=== PATIENT | male | born 1945 | race Caucasian/White ===

== ENCOUNTER → 2017-03-22 | Outpatient (CLI) | payer OTHER ==
[~2017-03-22] MED LIST: AMBIEN 5 MG TABL5 M1 PO; BUSPIRONE HCL10 MG PO; CALCIUM 500 WI1 EAC4 PO; CELEBREX 200 M200 MG PO; CHOLESTEROL PO; CYMBALTA60 MG PO; FLOMAX0.4 MG PO; GLUCOSAMINE HC500 MG PO; HYDROCODON-ACE1 EAC5 PO; KRILL OIL 1,001 EAC1 PO; MOBIC7.5 MG PO; MS CONTIN15 MG PO; NEURONTIN 300300 M1 PO; NORCO 10-325 T1 EAC1 PO; NORCO 10-325 T1 EACH PO; NORCO 5-325 TA1 EACH PO; SERTRALINE HCL50 MG PO; SYNTHROID PO; ULTRAM 50MG TAB50 MG PO; UNICOMPLEX M TA1 TA1 PO; VICODIN HP 10-1 EAC1 PO; VOLTAREN GEL 1100 G1 TOP
--- NOTE | 2017-03-24 08:15 | PAINCON ---
[facility] [address] [place] [address] PAIN MANAGEMENT CONSULTATION Name: ALONSOLOTT L Room: [facility] Rosalba#: [id number] Admission: 03/22/17 Attend Phys: Bal Mccray Discharge: Date of : 49 Report #: [id number] THIS REPORT FOR: //name// CC: Herber Manzo The patient is a very pleasant 71-year-old gentleman, typically treated for lumbar radiculopathy, axial back pain, right hip DJD, requiring high risk complex medication management. Last seen in pain clinic on 01/18/2017, continued on hydrocodone 10/325 one tablet 2-3 times a day, tramadol 50 mg up to 4 times a day. I prior injected his hip several months ago with some efficacy. We tried weaning hydrocodone from 3 a day to 2-3 a day limit, 75 down from 90. He notes decreased functional efficacy with this lower dose. He notes his pain overall is rated at 4 on a VAS. Pain primarily right hip and low back. We reviewed the fact that opiate medications are being used to provide analgesia adequate to support activities of daily living, not attempting to achieve a specific pain score on the 0-10 Visual Analog Scale. The current opiate medications are providing sufficient analgesia to allow the patient to participate in activities of daily living. The patient is not exhibiting any aberrant behavior suggestive of drug diversion. The patient is not having any adverse reactions to medications. The patient is not suffering from daytime somnolence or mental acuity changes. The patient is managing opiate-induced constipation with appropriate smpz-ued-osrsjlk agents and dietary considerations. The patient was counseled on concern for caution with operating a motor vehicle while using opiate medications. A physical exam was performed and the patient's functional status was evaluated. All patients with back pain were advised against the bed rest greater than 4 days and were advised to return to normal activities. Pain score assessment was noted and the treatment plan was reviewed with the patient. All current medications, both prescribed and OTC were reviewed and reconciled on the electronic medical record. Tobacco screening was accomplished and smoking cessation was advised when indicated. BMI was noted and diet/exercise modification was recommended for all patients following outside normal parameters. I reviewed with the patient today their responsibilities to safeguard prescription medications, reviewed their responsibility to utilize medications only as prescribed by the physician. They are to seek and receive pain medications only from 1 physician group ( [facility]). They are to use 1 pharmacy and keep the clinic informed if they change pharmacies. Their responsibilities include making followup visits in a timely fashion and to avoid abrupt discontinuation of medication usage. Their responsibilities further include bringing their medications (bottles from the pharmacy with residual pills) to the visit for possible confirmation of pill counts and the patient understands it is their responsibility to submit [place] [address] PAIN MANAGEMENT CONSULTATION Name: KAYLIE GUPTA [id number] Admission: 03/22/17 Attend Phys: Bal Mccray Discharge: Date of : 49 Report #: [id number] ensure both that the medications prescribed are present, and that no other controlled substances are present. All prescriptions provided today were generated electronically. PHYSICAL EXAMINATION: GENERAL: Shows 5 feet 9 inches, 183 pounds gentleman, BMI is 27 kilograms per meter squared. VITAL SIGNS: Blood pressure 142/72, pulse 70, respirations 18. NEUROLOGIC: Alert and oriented to person, place and time, judged to be a reasonable historian.: Rises from chair using armrest, modestly antalgic gait favoring the right hip and leg, some left hip pain with ambulation and standing. Pivoting and rotating seem to exacerbate pain. Lower extremity strength is preserved. ASSESSMENT: Symptomatic lumbar radiculopathy, history of right hip degenerative joint disease, axial back pain requiring high risk complex medication management. RECOMMENDATIONS: Continue opiate, we will increase hydrocodone 10/325 back in 90 tablets, i.e., 1-3 a day rather than 75 tablets (1 b.i.d. to t.i.d.). Continue tramadol 50 mg 4 times a day. Follow up in 2 months for reevaluation. We will try and get both the patient and his on a same day office visit schedule. <ELECTRONICALLY SIGNED> By: Thomas Manzo DO 03/24/17 0815 [id number] Manzo DO /nt
== END ==
LOC: M.PC 02:03
DX: M54.16 Radiculopathy, lumbar region (principal); M54.89 Other dorsalgia; Z79.899 Other long term (current) drug therapy

== ENCOUNTER → 2017-05-17 | Outpatient (CLI) | payer OTHER ==
--- NOTE | 2017-05-18 10:21 | PAINCON ---
[facility] [address] [place] [address] PAIN MANAGEMENT CONSULTATION Name: ALONSOKAYLIE Javi [facility] [id number] Admission: 05/17/17 Attend Phys: Bal Mccray Discharge: Date of : 49 Report #: [id number] THIS REPORT FOR: //name// CC: Herber Manzo DATE OF SERVICE: 05/17/2017 The patient is a very pleasant 72-year-old gentleman being treated for lumbar radiculopathy, axial back pain, right hip degenerative joint disease requiring complex medication management. Last seen in the pain clinic 03/22/2017. Continued on hydrocodone 10/325 one tablet up to 3 times a day for pain. Tramadol 50 mg up to 4 times a day for breakthrough pain. The patient returns to pain clinic today noting medications are generally providing sufficient analgesia to participate in activities of daily living. No problems with daytime somnolence, mental acuity changes, or constipation. He continues to take Celebrex 200 mg 1 a day, gabapentin 300 mg 1-2 tablets at bedtime, and hydrocodone 10/325 typically t.i.d. along with tramadol p.r.n. for breakthrough pain. The patient has chronic pain, low back, right greater than left hip and bilateral knees. The patient is 72 years of age, appears somewhat younger than stated age. PHYSICAL EXAMINATION: GENERAL: Shows 5 feet 9 inches, 182 pounds gentleman, BMI is 27.1 kilograms per meter squared, blood pressure 112/56, pulse 68, respirations 18. EXTREMITIES: Rises from chair using armrest. Gait is generally tandem, but has tenderness in the back and hips, pain with rotation of the right hip. Lower extremity strength is generally symmetric. SKIN: Intact. We reviewed the fact that opiate medications are being used to provide analgesia adequate to support activities of daily living, not attempting to achieve a specific pain score on the 0-10 Visual Analog Scale. The current opiate medications are providing sufficient analgesia to allow the patient to participate in activities of daily living. The patient is not exhibiting any aberrant behavior suggestive of drug diversion. The patient is not having any adverse reactions to medications. The patient is not suffering from daytime somnolence or mental acuity changes. The patient is managing opiate-induced constipation with appropriate wzmi-wtl-ugnicty agents and dietary considerations. The patient was counseled on concern [place] [address] PAIN MANAGEMENT CONSULTATION Name: KAYLIE GUPTA Javi Room: [facility]#: [id number] Admission: 05/17/17 Attend Phys: Bal Mccray Discharge: Date of : 49 Report #: [id number] a motor vehicle while using opiate medications. A physical exam was performed and the patient's functional status was evaluated. All patients with back pain were advised against the bed rest greater than 4 days and were advised to return to normal activities. Pain score assessment was noted and the treatment plan was reviewed with the patient. All current medications, both prescribed and OTC were reviewed and reconciled on the electronic medical record. Tobacco screening was accomplished and smoking cessation was advised when indicated. BMI was noted and diet/exercise modification was recommended for all patients following outside normal parameters. I reviewed with the patient today their responsibilities to safeguard prescription medications, reviewed their responsibility to utilize medications only as prescribed by the physician. They are to seek and receive pain medications only from 1 physician group ( [facility]). They are to use 1 pharmacy and keep the clinic informed if they change pharmacies. Their responsibilities include making followup visits in a timely fashion and to avoid abrupt discontinuation of medication usage. Their responsibilities further include bringing their medications (bottles from the pharmacy with residual pills) to the visit for possible confirmation of pill counts and the patient understands it is their responsibility to submit to random drug screens to ensure both that the medications prescribed are present, and that no other controlled substances are present. All prescriptions provided today were generated electronically. ASSESSMENT: Symptomatic axial back pain, degenerative joint disease affecting right greater than left hip and bilateral knees requiring complex medication regimen. RECOMMENDATION: We will continue hydrocodone 10/325 up to 3 a day. We have tried lower doses and we have tried using long-acting opiates all with dwindling efficacy. 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 He has continued to work 50-60 hours a week doing this. Medications enable him to continue with activities of daily living as well as continue working in meaningful work. I have taken the liberty of writing for current medication for another 2 months. Follow up at that time. <ELECTRONICALLY SIGNED> By: Thomas Manzo DO 05/18/17 1021 [id number] Manzo DO /nt
== END ==
LOC: M.PC 03:38
DX: M54.16 Radiculopathy, lumbar region (principal); M54.9 Dorsalgia, unspecified; M16.11 Unilateral primary osteoarthritis, right hip; M16.12 Unilateral primary osteoarthritis, left hip; M17.0 Bilateral primary osteoarthritis of knee; Z79.899 Other long term (current) drug therapy

== ENCOUNTER → 2017-06-27 | Outpatient (CLI) | payer OTHER | LOC: M.RAD 13:03 | DX: M54.6 Pain in thoracic spine (principal); M16.11 Unilateral primary osteoarthritis, right hip ==

== ENCOUNTER → 2017-07-12 | Outpatient (CLI) | payer OTHER ==
--- NOTE | 2017-07-13 09:37 | PAINCON ---
[address] [address] PAIN MANAGEMENT CONSULTATION Name: KAYLIE GUPTA [facility] [id number] Admission: 07/12/17 Attend Phys: Bal Mccray Discharge: Date of : 49 Report #: [id number] THIS REPORT FOR: //name// CC: Herber Manzo DATE OF SERVICE: 07/12/2017 HISTORY OF PRESENT ILLNESS: The patient is a very pleasant 72-year-old gentleman, typically treated for osteoarthritis, bilateral hips requiring complex medication management, component of lumbar radiculopathy requiring complex medication management. Last seen in the pain clinic on 05/17/2017. We will continue the patient on hydrocodone 10/325 one tablet 3 times a day. We tried long acting opiate with lower dose p.r.n. medication with nominal efficacy. He has been stable on hydrocodone 10/325 up to 3 a day and tramadol 50 mg up to 4 a day. He discontinued Celebrex and symptoms seem to have gotten worse. He notes he has a lot of low back spasm, which has been increasing recently. He was given a Medrol Dosepak, which afforded a significant relief of axial back pain. PHYSICAL EXAMINATION: GENERAL: Today does show a pleasant 72-year-old gentleman appearing somewhat younger than stated age. BMI is 27.5 kilograms per meter squared. VITAL SIGNS: Blood pressure 122/75, pulse 62, respirations are 20. NEUROLOGIC: Alert and oriented to person, place and time, judged to be a reasonable historian. MUSCULOSKELETAL: Cervical range of motion is good. Upper extremity strength is preserved. Rises from chair using the armrest, modestly antalgic gait. Very tender in the thoracic and lumbar paravertebral muscles, specifically from about L2 to L5 bilaterally. There is fairly tight muscle tone and tenderness with no discrete trigger points are noted. ASSESSMENT: Axial back pain, possible component of polymyositis versus myofascial pain. Chronic pain syndrome requiring complex medication management. RECOMMENDATIONS: 1. Continue hydrocodone 10/325 three a day, tramadol 50 mg 4 times a day and resume Celebrex 200 mg 1 a day. We will trial for 30 days Cymbalta 60 mg 1 a day. If back pain is more fibromyalgia type pain, this should afford some relief; if not, it may actually be an exacerbation of polymyositis, which would be well treated with low dose steroids. Unfortunately, the patient has a history of osteopenia; hence, chronic steroids would not be in his better interest long-term. 2. Follow up in 2 months for reevaluation. We will try the Cymbalta for 30 days and then discontinue. If he notes subjective relief, we will [place] [address] PAIN MANAGEMENT CONSULTATION Name: ALONSOLOTT L Room: [facility] DINA Navarrete#: [id number] Admission: 07/12/17 Attend Phys: Bal Mccray Discharge: Date of : 49 Report #: [id number] medication. We did get a buccal swab today random drug screen. No aberrant behavior suggestive of drug diversion, simply complying with her opiate consent to treat contract. <ELECTRONICALLY SIGNED> By: Thomas Manzo DO 07/13/17 0937 [id number] [id number] Manzo DO /nt
== END ==
LOC: M.PC 04:38
DX: G89.4 Chronic pain syndrome (principal); M54.9 Dorsalgia, unspecified; Z79.899 Other long term (current) drug therapy

== ENCOUNTER → 2017-09-13 | Outpatient (CLI) | payer OTHER ==
--- NOTE | 2017-09-14 07:27 | PAINCON ---
[address] [address] PAIN MANAGEMENT CONSULTATION Name: ALONSOLOTT L Room: [facility] DINA Navarrete#: [id number] Admission: 09/13/17 Attend Phys: Bal Mccray Discharge: Date of : 49 Report #: [id number] THIS REPORT FOR: //name// CC: Herber Manzo DATE OF SERVICE: 09/13/2017 The patient is a very pleasant 72-year-old gentleman, being treated for lumbar radiculopathy, osteoarthritis affecting both hips, requiring complex medication management. Last seen in the pain clinic 07/12/2017. The patient returns to pain clinic today noting medications are providing sufficient analgesia to participate in activities of daily living, in fact notes he is actually doing better than he has in some time. Last visit, we did start the patient on Cymbalta 60 mg 1 a day. He feels that this has significantly helped with the "fibromyalgia" component of pain in his back. He was told he had a component of polymyositis and was treated well with low dose steroids, but with history of osteopenia, he understood chronic steroids would not be in his long-term interest. The Cymbalta has been significantly efficacious for helping with the widespread thoracic and lumbar paravertebral muscle tenderness, primarily noted from L2-L5 bilaterally. We reviewed the fact that opiate medications are being used to provide analgesia adequate to support activities of daily living, not attempting to achieve a specific pain score on the 0-10 Visual Analog Scale. The current opiate medications are providing sufficient analgesia to allow the patient to participate in activities of daily living. The patient is not exhibiting any aberrant behavior suggestive of drug diversion. The patient is not having any adverse reactions to medications. The patient is not suffering from daytime somnolence or mental acuity changes. The patient is managing opiate-induced constipation with appropriate sqge-uzv-vrlvckh agents and dietary considerations. The patient was counseled on concern for caution with operating a motor vehicle while using opiate medications. A physical exam was performed and the patient's functional status was evaluated. All patients with back pain were advised against the bed rest greater than 4 days and were advised to return to normal activities. Pain score assessment was noted and the treatment plan was reviewed with the patient. All current medications, both prescribed and OTC were reviewed and reconciled on the electronic medical record. Tobacco screening was accomplished and smoking cessation was advised when indicated. BMI was noted and diet/exercise modification was recommended for all patients following outside normal parameters. I reviewed with the patient today their responsibilities to safeguard prescription medications, reviewed their responsibility [place] [address] PAIN MANAGEMENT CONSULTATION Name: KAYLIE GUPTA Room: [facility] Rosalba#: [id number] Admission: 09/13/17 Attend Phys: Bal Mccray Discharge: Date of : 49 Report #: [id number] only as prescribed by the physician. They are to seek and receive pain medications only from 1 physician group ( [facility]). They are to use 1 pharmacy and keep the clinic informed if they change pharmacies. Their responsibilities include making followup visits in a timely fashion and to avoid abrupt discontinuation of medication usage. Their responsibilities further include bringing their medications (bottles from the pharmacy with residual pills) to the visit for possible confirmation of pill counts and the patient understands it is their responsibility to submit to random drug screens to ensure both that the medications prescribed are present, and that no other controlled substances are present. All prescriptions provided today were generated electronically. The patient returns to pain clinic noting subjective pain score is 4 on a VAS. Pain is primarily low back and hips. Notes he is much more functional presently. PHYSICAL EXAMINATION: Shows a 5 feet 9 inches, 190-pound gentleman, BMI is 28.1 kg/m2. Blood pressure on EMR, pulse 57, respirations 16. Rises from chair easily. Gait is tandem. Alert and oriented to person, place and time, judged to be a reasonable historian. Cervical range of motion is full. Diffuse tenderness across the low back is significantly improved. Lumbar range of motion is modestly limited. Lower extremity strength is preserved. Last drug screen, a buccal swab obtained 07/12/2017, was positive for prescribed medication including hydrocodone and tramadol. Negative for any other controlled substances. ASSESSMENT: Osteoarthritis affecting bilateral hips, lumbar radiculopathy, chronic pain syndrome requiring complex medication management in an opiate consent to treat contract patient, stable on baseline medication, last random drug screen in June was positive for prescribed medications. RECOMMENDATION: Continue Cymbalta 60 mg 1 a day, hydrocodone 10/325 up to 3 tablets a day, I have taken the liberty of writing for 3 months of current medication, tramadol 50 mg up to 4 a day for breakthrough pain. I have taken the liberty of writing for 3 months of this medication as well. Continue baseline Celebrex and gabapentin. Follow up with Dr. Adam Ritter for ongoing pain management. <ELECTRONICALLY SIGNED> By: Thomas Manzo DO 09/14/17726 1323 20Thomas Manzo DO /nt
== END ==
LOC: M.PC 09-06 04:14
DX: M54.16 Radiculopathy, lumbar region (principal); M16.6 Other bilateral secondary osteoarthritis of hip; G89.29 Other chronic pain; Z79.891 Long term (current) use of opiate analgesic

== ENCOUNTER → 2017-12-19 | Outpatient (CLI) | payer OTHER ==
--- NOTE | 2018-01-31 15:49 | PAINCON ---
[address] [address] PAIN MANAGEMENT CONSULTATION Name: ALONSOKAYLIE Javi Room: [facility] DINA Navarrete#: [id number] Admission: 12/19/17 Attend Phys: Chris Ritter MD Discharge: Date of : 47 Report #: [id number] THIS REPORT FOR: //name// CC: Chris Mast DATE OF SERVICE: 12/19/2017 CHIEF COMPLAINT: Low back pain, history of hip and elbow pain. FOLLOWUP HISTORY: The patient is a 72-year-old gentleman who has been followed in the pain clinic by Dr. Thomas Manzo. He has a complex problem involving radiculopathy, osteoarthritis, which affects both hips and has been treated with complex medical management. The patient has not been a candidate for nonsteroidal anti-inflammatory medications because of his gastrointestinal problems. The patient feels that his medications have been helpful. He has returned today for renewal of these medications. He has had no complications from their use. He is aware that about [id number] people over the last year because of overdose on medications. He states that he is using his medication as prescribed. Keeps his medications in a guarded area. He was also found benefit from use of Cymbalta. He also has a fibromyalgia component of pain and discomfort. He has been told that he has some elements of. polymyositis and has been treated with low dose steroids because of this. Has a history of osteopenia. He has used these medications as sparingly as possible. He feels that his Cymbalta has been efficacious and is widespread thoracic and lumbar paravertebral muscle tenderness. Has pain primarily are significantly evident in through L5 areas bilaterally. He has returned today for renewal of his medications. He feels that his pain overall as about 80% improved with use of his medications. ALLERGIES: No known drug allergies. MEDICATIONS: Tramadol 50 mg 1 p.o. q. 4-6 h. p.r.n., Celebrex 200 mg 1 p.o. daily, duloxetine 60 mg daily, gabapentin 300 mg 1-2 tablets at bedtime, [place] 10/325 one p.o. t.i.d. PAST MEDICAL HISTORY: Hypertension, thyroid disease, stomach problems, benign prostatic hypertrophy, emotional problems, joint disease/arthritis ulcers stroke/TIA. PAST SURGICAL HISTORY: Carpal tunnel surgery 1999, fractured femur 1956. SOCIAL HISTORY: The patient was working in 2013. 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 LABORATORY DATA: No new laboratory items were available at the time of our interview. PAIN CLINIC ASSESSMENT/PQRS: 1. Osteoarthritic changes involving the hip. 2. Rheumatoid arthritis. The patient is not being treated for rheumatoid arthritis. 3. Height 5 feet 9 inches, weight 186 pounds, BMI is 28.4. 4. Vital signs: Blood pressure 151/81, heart rate 73, respiratory rate 16, room air saturation 96%, temperature 98.1. 5. Pain score of 4/10 can rise to the level6/10. 6. Fall risk. The patient has not fallen in the last 3 months. 7. Blood thinner. The patient is not on a blood thinning medication. 8. Hypertension. The patient is not being treated for hypertension. At this juncture, has been in the past. 9. Opioids greater than 6 weeks. The patient receives this medication from one source, the pain clinic. 10. Risk assessment tool. 11. Functional assessment low. 12. Pain impact score 46/70 13. Alcohol: The patient denies frequent use of alcoholic beverages. 13. Tobacco: The patient denies use of tobacco. 14. Recreational drugs. The patient denies recreational drug use. PHYSICAL EXAMINATION: GENERAL: The patient is a well-developed, well-nourished white male. Appears his stated age. He is alert and oriented x 3. Affect is appropriate. Speech is fluent. HEENT: Normocephalic, atraumatic. Extraocular muscles intact. Sclerae nonicteric. Mucous membranes are moist. NECK: Without adenopathy or JVD. Upper extremity muscle strength is judged to be 5/5 for the major muscle groups in the upper extremity. Portfolio Manager strength 5/5 Regular rate. LUNGS: Clear to auscultation. ABDOMEN: Nontender. Bowel sounds present. The patient complains of pain and discomfort in his hips bilaterally. Complains of pain in his elbow as well. The left elbow was most problematic. Lower extremity muscle strength is judged to be generally 5-/5 for the major muscle groups in the lower extremity. Notes some increased pain and discomfort with rotation of his hips to the range of motion. IMPRESSION: 1. Osteoarthritis involving both hips. [facility] [address] [place] [address] PAIN MANAGEMENT CONSULTATION Name: KAYLIE GUPTA Room: [facility]#: [id number] Admission: 12/19/17 Attend Phys: Chris Ritter MD Discharge: Date of : 47 Report #: [id number] 2. History of lumbar radiculopathy. 3. History of thyroid disease in the past. 4. History of stroke. 5. History of ulcers. 6. History of emotional problems. RECOMMENDATIONS: We discussed treatment options with the patient at this juncture. He finds that his current medication regimen is helpful. We will continue with the current regimen that Dr. Manzo had written for the patient. He will continue with Neurontin 300 mg one to two tablets at bedtime, Celebrex 200 mg 1 p.o. daily as tolerated. The patient will monitor his stomach/digestive system. He notes some worsening of pain or discomfort he will then immediately stopped the Celebrex, given he has a history of ulcers. Cymbalta 60 mg 1 p.o. daily, hydrocodone 10/325 one p.o. t.i.d. as needed. The patient will call us if he has any problems with his medications. A script for Ultram 50 mg 1 p.o. q. 4-6 h., total of 120, has been renewed as well. The patient will try Voltaren gel and rubbed into his upper extremities as needed q.i.d. We would like to thank you for letting us participate in his care. We hope he continues to improve. <ELECTRONICALLY SIGNED> By: Chris Ritter MD 01/31/18 1549 1316 1921N. Adam Ritter MD /nt
== END ==
LOC: M.PC 12-05 05:53
DX: M54.16 Radiculopathy, lumbar region (principal); M17.0 Bilateral primary osteoarthritis of knee; E07.9 Disorder of thyroid, unspecified; I63.9 Cerebral infarction, unspecified; L98.499 Non-pressure chronic ulcer of skin of other sites with unspecified severity; F98.9 Unspecified behavioral and emotional disorders with onset usually occurring in childhood and adolescence

== ENCOUNTER → 2018-02-06 | Outpatient (CLI) | payer OTHER ==
--- NOTE | ~2018-02-06 | PAINCON ---
[address] [address] PAIN MANAGEMENT CONSULTATION Name: KAYLIE GUPTA Javi Room: [facility] Rosalba#: [id number] Admission: 02/06/18 Attend Phys: Chris Ritter MD Discharge: Date of : 47 Report #: [id number] THIS REPORT FOR: //name// CC: Chris Mast DO DATE OF SERVICE: 02/06/2018 CHIEF COMPLAINT: Low back, hip, and left elbow pain. HISTORY OF PRESENT ILLNESS: The patient is a 72-year-old gentleman who has a history of low back pain as well as hip and elbow pain. He returns today indicating that his low back and hip pain is still problematic and the left elbow pain in the medial area (golf elbow) is more problematic today. He would like to have an injection in this area to help decrease the pain and discomfort that he is experiencing. As you may recall, he has a complex problem involving radiculopathy and osteoarthritis, which affects both hips and has been treated with complex medical management. The patient is not a candidate for nonsteroidal anti-inflammatory medications because of his gastroesophageal problems. He feels that his current medications are helpful. He would like to have these medications renewed. He states that he is taking his medications as prescribed. He keeps his medications in a guarded area. He feels that there is a benefit from use of Cymbalta. He also has fibromyalgia components of his pain. He has also had some elements of polymyositis and has been treated with low-dose steroids because of this. He has a history of osteopenia. He states that he tries to use his medications as sparingly as possible. He feels that Cymbalta has been efficacious and widespread thoracic and paravertebral muscle tenderness has been helped. He has pain, which can be significant in the L4-L5 distribution bilaterally. He feels that he is about overall 80% improved with his current medication regimen. ALLERGIES: No known drug allergies. MEDICATIONS: Tramadol 50 mg one p.o. 4-6 hours, Celebrex 200 mg 1 p.o. daily, duloxetine 60 mg daily, gabapentin 300 mg 1-2 tablets at bedtime, [place] 10/325 one p.o. t.i.d. PAIN CLINIC ASSESSMENT AND PQRS: 1. Osteoarthritic changes involving the hips. 2. Rheumatoid: The patient is not being treated for rheumatoid arthritis, but has some elements of polymyositis. 3. Height 5 feet 9 inches, weight 187 pounds, BMI is 27.7. 4. Vital signs: Blood pressure 134/73, heart rate 71, respiratory rate 18, room air saturation is 94%, temperature 98.2. 5. Pain intensity: 5/10. [place] [address] PAIN MANAGEMENT CONSULTATION Name: KAYLIE GUPTA Room: [facility]#: [id number] Admission: 02/06/18 Attend Phys: Chris Ritter MD Discharge: Date of : 47 Report #: [id number] 6. Fall risk: The patient has not fallen in the last 3 months. 7. Blood thinner: The patient is not on a blood thinning medication. 8. Hypertension: The patient is not being treated for hypertension. 9. Opioid greater than 6 weeks: The patient receives his medication from one source from the Pain Clinic. 10. Risk assessment tool. 11. Functional assessment tool: Low for opioid use. 12. Pain impact score: 46/70. 13. Alcohol: The patient denies frequent use of alcoholic beverages. 14. Tobacco: The patient denies use of alcoholic beverages. 15. Recreational drugs: The patient denies. PHYSICAL EXAMINATION: GENERAL: The patient is a well-developed, well-nourished, white male. He appears his stated age. He is alert and oriented x 3. His affect is appropriate. Speech is fluent. HEENT: Normocephalic, atraumatic. Extraocular eye muscles intact. Sclerae nonicteric. Mucous membranes are moist. NECK: Without adenopathy or JVD. LUNGS: Clear to auscultation. ABDOMEN: Nontender. Bowel sounds present. NEUROUSCULOSKELETAL: Upper extremity muscle strength is judged to be 5/5 for the major muscle groups in the upper extremity, signal worker helper strength is 5/5. The patient does complain of pain and discomfort in his hips bilaterally. He also complains of pain in his left elbow in the area of the medial portion (golf elbow). Lower extremity muscle strength is judged to be 5/5 for the major muscle groups. He notes increased pain and discomfort with rotation of his hips and movement to range of motion. IMPRESSION: 1. Osteoarthritis involving both hips. 2. 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 3. History of lumbar radiculopathy. 4. History of thyroid disease in the past. 5. History of stroke. 6. History of ulcers. 7. History of emotional problems. RECOMMENDATIONS: We discussed treatment options with the patient. At this juncture, we will continue with his current medications. A script for his medications has been written. The patient has pain and discomfort in the area of the left arm. Palpation in the medial portion of his arm shows signs consistent with golf elbow. Palpation in this area does reproduce a significant component of the patient's pain. Gripping strength in his hand causes some increased pain in the medial portion with inversion of his fists to the ulnar direction, this does reproduce portion of the patient's pain. We discussed the [address] [address] PAIN MANAGEMENT CONSULTATION Name: KAYLIE GUPTA Room: [facility]#: [id number] Admission: 02/06/18 Attend Phys: Chris Ritter MD Discharge: Date of : 47 Report #: [id number] treatment option. Risks and benefits of the procedure were discussed. The patient elects to proceed with the treatment. Possible complications which can include infection, worsening of pain, and no improvement in pain were discussed and the patient elects to proceed. PROCEDURE NOTE: The patient was taken to the procedure area. He was assisted in getting on the examination table. He was placed in the supine position. His left arm was outstretched from his body. This area was sterilely prepped. Prior to preparation, palpation in the area of the medial epicondyle was palpated. The patient states that this did reproduce his pain and discomfort. After placement of chlorhexidine solution, which was allowed to dry, a 25-gauge needle was then advanced into the area of the discomfort. Aspiration was negative. A total of 40 mg triamcinolone and 5 mL of 0.5% bupivacaine was injected. The patient tolerated the procedure well. There were no complications. He remained in the Pain Clinic for an appropriate amount of time. He will follow up in the future as needed. We would like to thank you for letting us participate in his care. We hope he continues to improve. By: [id number]. Adam Ritter MD /nt
== END | disposition home or self-care (01) ==
LOC: M.PC 04:53
DX: M77.02 Medial epicondylitis, left elbow (principal); M16.0 Bilateral primary osteoarthritis of hip; Z86.73 Personal history of transient ischemic attack (TIA), and cerebral infarction without residual deficits; Z87.19 Personal history of other diseases of the digestive system; Z86.59 Personal history of other mental and behavioral disorders; Z87.39 Personal history of other diseases of the musculoskeletal system and connective tissue; Z79.899 Other long term (current) drug therapy

== ENCOUNTER → 2018-03-08 | Outpatient (CLI) | payer OTHER ==
--- NOTE | ~2018-03-08 | PAINCON ---
[address] [address] PAIN MANAGEMENT CONSULTATION Name: KAYLIE GUPTA Room: [facility] Rosalba#: [id number] Admission: 03/08/18 Attend Phys: Chris Ritter MD Discharge: Date of : 47 Report #: [id number] THIS REPORT FOR: //name// CC: Chris Mast DATE OF SERVICE: 03/08/2018 PRIMARY CARE PHYSICIAN: Herber Mast DO CHIEF COMPLAINT: Here for medication renewal. FOLLOWUP HISTORY: The patient is a 72-year-old gentleman who has been seen in the Pain Clinic because of chronic back, hip and elbow pain. He has a history of low back pain involving his hips. Also had some pain in his left elbow in the medial area (golf elbow). Palpation and injection of this area with a local anesthetic and steroid for trigger point injection at the last visit were quite beneficial. The patient states that has resolved the pain and discomfort that he has been experiencing in his medial portion of his arm. He has not had a hip x-ray at this joint. Continues to rate his pain as a 4-5 overall. The patient is not a candidate for nonsteroidal anti-inflammatory medication because of his gastroesophageal problems. Finds that his current medications are helpful. He is taking his medication as prescribed. Keeps them in a guarded area. Feels that he has continued to have benefit from use of Cymbalta. Also, has fibromyalgia components to his pain. He has been treated for polymyositis with low dose steroids. Has a history of osteopenia. Has noted some of widespread thoracic and paravertebral muscle spasms. Overall with his medications, he feels that things are about 80% improved. He would like to have his medications renewed. ALLERGIES: No known drug allergies. CURRENT MEDICATIONS: Tramadol 50 mg one p.o. 4-6 hours, Celebrex 200 mg 1 p.o. daily, duloxetine 60 mg, gabapentin 300 mg 1-2 tablets at bedtime, [place] 10/325 one p.o. t.i.d. PAIN CLINIC ASSESSMENT/PQRS: 1. Osteoarthritis has changes involving his hips. 2. Rheumatoid arthritis. The patient has not been treated for rheumatoid arthritis, but does have some elements of polymyositis. 3. Height 5 feet 9 inches, weight 183 pounds, BMI is 27.2. 4. Vital signs: Blood pressure 130/76, heart rate 68, respiratory rate 18, room air saturation 96%, temperature is 97.7. 5. Pain intensity 10. 6. Fall history: The patient has not fallen in the last 3 months. 7. Blood thinner. The patient is not [place] [address] PAIN MANAGEMENT CONSULTATION Name: KAYLIE GUPTA Javi Room: [facility]#: [id number] Admission: 03/08/18 Attend Phys: Chris Ritter MD Discharge: Date of : 47 Report #: [id number] 8. Hypertension. The patient is not being treated for hypertension. 9. Opioids. The patient receives this medication from one source, pain clinic. 10. Risk assessment tool, low for opioid use. 11. Functional assessment tool. 12. Recreational drug use. The patient denies use of recreational drugs. 13. Tobacco: The patient denies use of tobacco. 14. Alcohol: The patient denies use of alcohol. PHYSICAL EXAMINATION: GENERAL: The patient is a well-developed, well-nourished white male. Appears his stated age. He is alert and oriented x 3. His affect is appropriate. Speech is fluent. HEENT: Normocephalic, atraumatic. Extraocular eye muscles intact. Sclerae nonicteric. Mucous membranes are moist. NECK: Without adenopathy or JVD. LUNGS: Clear to auscultation without rhonchi or rales. ABDOMEN: Nontender. Bowel sounds present. MUSCULOSKELETAL: Without significant scoliosis, kyphosis or lordosis. EXTREMITIES: Upper extremity muscle strength is judged to be 5-/5 for the major muscle groups. Lower extremity, the patient does complain of some pain and discomfort in his hips bilaterally. Has noted resolution of the pain in his left elbow, which was golf elbow. Lower extremity muscle notes some increased pain and discomfort with rotation of his hip and movements and ranging of motion of his hips. IMPRESSION: 1. Osteoarthritis involving both hips. 2. Golf elbow improve/medial epicondylitis. 3. History of lumbar radiculopathy. 4. History of thyroid disease in the past. 5. History of stroke. 6. History of ulcers. 7. History of emotional problems. RECOMMENDATIONS: We discussed treatment options with the patient. At this juncture, we will continue with his current medical regimen. He has noted benefits from the injection in his left elbow. Overall, he feels that the hydrocodone medication that he is taking continues to be helpful with his hips and with other pain. He continues to monitor his GI tract with use of Celebrex, [place], continues to be helpful as well. Tramadol and Cymbalta continue to be used. The patient will also use Voltaren Gel to the upper extremity pain areas. [address] [place] [address] PAIN MANAGEMENT CONSULTATION Name: KAYLIE GUPTA Javi Room: [facility]#: [id number] Admission: 03/08/18 Attend Phys: Chris Ritter MD Discharge: Date of : 47 Report #: [id number] We would like to thank you for letting us participate in his care. We hope he continues to improve. By: [id number]. Adam Ritter MD /PMT
== END ==
LOC: M.PC 01:39
DX: M16.0 Bilateral primary osteoarthritis of hip (principal); M54.16 Radiculopathy, lumbar region; M77.02 Medial epicondylitis, left elbow; Z79.899 Other long term (current) drug therapy; Z86.73 Personal history of transient ischemic attack (TIA), and cerebral infarction without residual deficits; Z87.11 Personal history of peptic ulcer disease; Z86.59 Personal history of other mental and behavioral disorders; Z86.39 Personal history of other endocrine, nutritional and metabolic disease

== ENCOUNTER → 2018-05-31 | Outpatient (CLI) | payer OTHER ==
--- NOTE | 2018-06-05 09:30 | PAINCON ---
[address] [address] PAIN MANAGEMENT CONSULTATION Name: ALONSOKAYLIE HENAO Room: [facility] Tresa.Karla.#: [id number] Admission: 05/31/18 Attend Phys: Chris Ritter MD Discharge: Date of : 47 Report #: [id number] THIS REPORT FOR: //name// CC: Chris Mast DATE OF SERVICE: 05/31/2018 PRIMARY CARE PHYSICIAN: Herber Mast DO CHIEF COMPLAINT: Here for medication renewal. FOLLOWUP HISTORY: The patient is a 73-year-old gentleman who has been followed in the pain clinic. As you may recall, he has chronic back pain and noted improvement in the past after an injection in his elbow. Has some right shoulder discomfort. Overall, rates his pain as a 2-3. He notes that his right hip still remains problematic. He has spoken with a friend. The patient has undergone stem cell injections in the knee area. States that the patient had about 6 days of improvement. He is wondering about the status of stem cell injections at this juncture. He is here for renewal of his medications. Overall, he has pain on his right side more problematic than the left in the hip area. He has had some pain in the thoracic area as well. Overall, he feels his medications are helpful. He has returned to the pain clinic for renewal of the medications. ALLERGIES: No known drug allergies. CURRENT MEDICATIONS: Tramadol 50 mg q. 4 hours, Celebrex 200 mg daily. The patient will monitor his GI tract. Duloxetine 60 mg, gabapentin 300 mg 1-2 tablets at bedtime, [place] 10 mg 1 p.o. t.i.d. PAIN CLINIC ASSESSMENT/PQRS: 1. The patient has some pain and discomfort involving his low back and the hips, right greater than left. 2. The patient is not being treated for rheumatoid arthritis. Does have some elements of polymyositis. 3. Height 5 feet 9 inches, weight 186 pounds, BMI is 27.6. 4. Vital signs: Blood pressure 134/77, heart rate 53, respiratory rate 16, room air saturation 96%, temperature 97.5. Pain intensity 04/29. 5. Fall history: The patient has not fallen in the last 3 months. 6. Blood thinner. The patient is not on a blood thinning medication. 7. Hypertension. The patient is not being treated for hypertension. 8. Opioids. The patient receives his medication from one source, pain clinic. 9. Risk assessment tool, low for opioid use. 10. Functional assessment tool. 11. Recreational drug use. The patient [place] [address] PAIN MANAGEMENT CONSULTATION Name: KAYLIE GUPTA [id number] Admission: 05/31/18 Attend Phys: Chris Ritter MD Discharge: Date of : 47 Report #: [id number] 12. Tobacco: The patient denies use of tobacco. 13. Alcohol: The patient denies use of alcoholic beverages. PHYSICAL EXAMINATION: GENERAL: The patient is a well-developed, well-nourished white male. Appears his stated age. He is alert and oriented x 3. His affect is appropriate. Speech is fluent. HEENT: Normocephalic, atraumatic. Extraocular eye muscles intact. Sclerae nonicteric. The patient is wearing a hat. NECK: Without adenopathy or JVD. LUNGS: Clear to auscultation without rhonchi or rales. ABDOMEN: Nontender. Bowel sounds present. MUSCULOSKELETAL: Without significant scoliosis, kyphosis or lordosis. EXTREMITIES: Upper extremity muscle strength is judged to be 5-/5 for the major muscle groups. The patient has some pain and discomfort in his right shoulder area today. Lower extremity. The patient's muscle strength judged to be 5-/5 for the major muscle groups in the lower extremity. Uses hands go from a sitting to a standing position before ambulating. IMPRESSION: 1. Osteoarthritic changes involving both hips. Improved golf elbow medial epicondylitis. 2. History of lumbar radiculopathy. 3. History of thyroid disease in the past. 4. History of stroke. 5. History of ulcers. 6. Emotional problems. RECOMMENDATIONS: We discussed treatment options with the patient. At this juncture, we will continue with his current medications. A script for his medications has been renewed. Risks and benefits of opioid medications, which could include addiction as well as less effectiveness over a period of time secondary to tolerance were discussed. Overall, the patient feels things are going reasonably well. A script for hydrocodone 10/325 one p.o. t.i.d. have been written. The patient will also continue with Cymbalta 60 mg at bedtime, gabapentin 300 mg 2 tablets at bedtime, Celebrex and monitor his GI tract, diclofenac gel to the affected area of his hands. We would like to thank you for letting us participate in his care. We hope he continues to improve. <ELECTRONICALLY SIGNED> By: Chris Ritter MD 06/05/18 0930 [id number]. Adam Ritter MD /KEVIN
== END ==
LOC: M.PC 10:00
DX: M16.0 Bilateral primary osteoarthritis of hip (principal); M77.00 Medial epicondylitis, unspecified elbow; G89.29 Other chronic pain; Z86.73 Personal history of transient ischemic attack (TIA), and cerebral infarction without residual deficits; Z79.899 Other long term (current) drug therapy; Z79.891 Long term (current) use of opiate analgesic; Z87.11 Personal history of peptic ulcer disease

== ENCOUNTER → 2018-08-23 | Outpatient (CLI) | payer OTHER ==
--- NOTE | ~2018-08-23 | PAINCON ---
[address] [address] PAIN MANAGEMENT CONSULTATION Name: ALONSOLOTTDIANA HEANO Room: [facility] Brien.#: [id number] Admission: 08/23/18 Attend Phys: Chris Ritter MD Discharge: Date of : 47 Report #: [id number] THIS REPORT FOR: //name// CC: Chris Mats DATE OF SERVICE: 08/23/2018 CHIEF COMPLAINT: "Continued pain, I am sore all over." HISTORY: The patient is a 73-year-old female who has been followed in the pain clinic because of chronic pain. He has been maintained on a chronic pain medication regimen using tramadol, gabapentin, and Knox. He returned today for renewal of his medications. Overall, things are going reasonably well. He has had no complications. It has been a very tumultuous month. Tornadic actions have been seen around the area. Changes in the barometric pressure have been quite problematic. It vacillates back in forth quite a bit. This has caused some increased pain and discomfort in his left elbow. He also has pain in the lower portion of his back. He finds his pain is 2-3 today. Overall, things are going reasonably well. He would like to continue with his medication. Low back and right hip pain as well as left hip pain are somewhat problematic also. He has undergone stem cell injections to his knees. ALLERGIES: No known drug allergies. CURRENT MEDICATIONS: Tramadol 50 mg q. 4 hours, Celebrex 200 mg daily, duloxetine 60 mg, gabapentin 300 mg 1-2 tablets at bedtime and [place] 10 mg 1 p.o. t.i.d. PAIN CLINIC ASSESSMENT/PQRS: 1. The patient is not being treated for rheumatoid arthritis. The patient has some arthritic changes in his right as well as left hip and in the lower back. 2. The patient has a history of polymyositis. 3. Height 5 feet 9 inches, weight 183 pounds, BMI is 27.1. 4. Vital Signs: Blood pressure 121/73, heart rate 77, respiratory rate 16, room air saturation 95%, temperature 97.8. 5. Pain intensity 04/29. 6. Fall history: The patient has not fallen in the last 3 months. 7. Blood thinner. The patient is not on a blood thinning medication. 8. Hypertension. The patient is not being treated for hypertension. 9. Opiates greater than 6 weeks. The patient received some medications from one source, the pain clinic. 10. Risk assessment tool, low for opioid use. 11. Functional assessment tool. 12. Recreational drug use. The patient denies use of recreational drugs. 13. Tobacco: The patient [place] [address] PAIN MANAGEMENT CONSULTATION Name: KAYLIE GUPTA EARLENE [id number] Admission: 08/23/18 Attend Phys: Chris Ritter MD Discharge: Date of : 47 Report #: [id number] 14. Alcohol: The patient denies use of alcoholic beverages. PHYSICAL EXAMINATION: GENERAL: The patient is a well-developed, well-nourished white male, who appears appropriate age of 73. He is alert and oriented x 3. His affect is appropriate. Speech is fluent. HEENT: Normocephalic, atraumatic. Extraocular eye muscles intact. Sclerae nonicteric. Mucous membranes are moist. NECK: Without adenopathy or JVD. LUNGS: Clear to auscultation without rhonchi or rales. ABDOMEN: Nontender. MUSCULOSKELETAL: Without significant scoliosis, kyphosis or lordosis. Upper extremity muscle strength is judged to be 5-/5 for the major muscle groups in the upper extremity. The patient has some pain and discomfort in the lower portion of his back with involvement in both right as well as the left hip. Right hip is more problematic. The patient notes that his left elbow is doing reasonably well. He has had injections in that in the past. IMPRESSION: 1. Osteoarthritic changes involving both hips, golf elbow medial epicondylitis history. 2. History of lumbar radiculopathy. 3. Thyroid disease in the past. 4. History of stroke. 5. History of ulcers. 6. Emotional problems. RECOMMENDATIONS: We discussed treatment options with the patient. Risks and benefits of opioid medications as well as other medications, which are being used have been discussed with the patient. We explained that [id number] people have as a result of overusing their medications. The patient states he has taken the medication as prescribed. We have indicated that long-term use of opioid medications can for some people cause dependence also, may cause some decrease in benefit secondary to the development of tolerance. Overall, the patient feels that his medications are working reasonably well. We will continue with his complex medical management regimen of hydrocodone 10 mg t.i.d., Cymbalta 60 mg, gabapentin 300 mg b.i.d., Celebrex and Voltaren Gel. The patient will call us if he has any concerns. We would like to thank you for letting us participate in his care. We hope he continues to improve. We will continue monitoring the patient's use of medications on his complex medical regimen. He feels that his pain overall is about 80% helped with his regimen. By: 1102 1407N. Adam Ritter MD /nt
== END ==
LOC: M.PC 05:32
DX: M16.0 Bilateral primary osteoarthritis of hip (principal); E07.89 Other specified disorders of thyroid; Z86.73 Personal history of transient ischemic attack (TIA), and cerebral infarction without residual deficits; Z79.899 Other long term (current) drug therapy

== ENCOUNTER → 2018-09-25 | Outpatient (CLI) | payer OTHER ==
--- NOTE | ~2018-09-25 | PAINCON ---
[address] [address] PAIN MANAGEMENT CONSULTATION Name: ALONSOLOTTDIANA HENAO Room: [facility] Rosalba#: [id number] Admission: 09/25/18 Attend Phys: Chris Ritter MD Discharge: Date of : 47 Report #: [id number] THIS REPORT FOR: //name// CC: Chris Mast DATE OF SERVICE: 09/27/2018 CHIEF COMPLAINT: Left elbow pain. HISTORY: The patient is a 73-year-old gentleman who has been seen in the pain clinic because of chronic pain. He has had problems with his left elbow. He has noticed an increase in pain and discomfort. He had an injection in 01/2018. He has had improvement in the pain up until this point. He has noted about a month ago, increasing pain and discomfort. He has returned today for evaluation and possibility of an injection to help control the pain. The patient also has some pain and discomfort in his low back area on the right. Certain movements can increase his pain and discomfort. He is contemplating going on a trip. He rates his pain in the elbow as a 3/10. ALLERGIES: No known drug allergies. CURRENT MEDICATIONS: Tramadol 50 mg q.4 hours, Celebrex 200 mg, duloxetine 60 mg, gabapentin 300 mg 1-2 tablets at bedtime, [place] 10/325 one p.o. t.i.d. PAIN CLINIC ASSESSMENT/PQRS: 1. The patient is not being treated for rheumatoid arthritis. Does have some arthritic changes in his right as well as his left hip and in the low back area. 2. The patient has a history of polymyositis. 3. Height 5 feet 9 inches, weight 183 pounds, BMI is 27. 3. VITAL SIGNS: Blood pressure 145/73, heart rate 71, respiratory rate 18, room air saturation 96%, temperature 98.3. 4. Pain intensity 05/27. 5. Fall history: The patient has not fallen in the last 3 months. 6. Blood thinner. The patient is not on a blood thinning medication. 7. Hypertension. The patient is not being treated for hypertension. 8. Opioid greater than 6 weeks. 9. The patient receives his medications from one source, the pain clinic. 10. Risk assessment tool, low for opioid use. 11. Functional assessment tool. 12. Recreational drug use. The patient denies use of recreational drugs. 13. Tobacco: The patient denies use of tobacco. PHYSICAL EXAMINATION: GENERAL: The patient is well-developed, well-nourished white male. Appears his stated age. He is alert and oriented x 3. [place] [address] PAIN MANAGEMENT CONSULTATION Name: KAYLIE GUPTA [id number] Admission: 09/25/18 Attend Phys: Chris Ritter MD Discharge: Date of : 47 Report #: [id number] is fluent. HEENT: Normocephalic, atraumatic. Extraocular eye muscles intact. Sclerae nonicteric. Mucous membranes are moist. NECK: Without adenopathy or JVD. LUNGS: Clear to auscultation without rhonchi or rales. The patient has some pain and discomfort in the right low back area near approximately T10/T11 area. Palpation in this area does cause some intercostal discomfort and reproduce a component of pain in this area. MUSCULOSKELETAL: Without significant scoliosis, kyphosis or lordosis. Upper extremity muscle strength is judged to be 5/5 for the major muscle groups in the upper extremity. The patient has pain and discomfort on the left arm. He notes pain and discomfort in the area of the medial epicondyle. Palpation in this area does reproduce his discomfort (golf elbow). IMPRESSION: 1. Golf elbow/medial epicondylitis. 2. History of lumbar radiculopathy. 3. Thyroid disease in the past. 4. History of stroke. 5. History of ulcers. 6. Emotional problems. 7. Pain and discomfort in approximately the right T10/T11 intercostal areas. RECOMMENDATIONS: We discussed treatment options with the patient. At this juncture, he feels that the pain in the right low back area is problematic, but that he would like to have the elbow injected today. He is considering going on vacation. PROCEDURE NOTE: We discussed treatment options with the patient. Risks and benefits of nerve damage, infection, worsening of pain, no improvement in pain were explained to the patient regarding the injection of his elbow and he elects to proceed. PROCEDURE NOTE: The patient was taken to the procedure area. He was then assisted in getting over the examination table. He was placed in the supine position. His left arm was outstretched from his body. This area was sterilely prepped with a chlorhexidine solution and allowed to dry. The medial epicondylar area was palpated. The patient noted the area of most intense discomfort. A 25-gauge needle was then advanced into this area. Aspiration was negative. A total of 40 mg triamcinolone and 5 mL of 0.5% bupivacaine was injected. The patient tolerated the procedure well. He remained in the pain clinic for an appropriate amount of time. He will follow up in the future as [address] [place] [address] PAIN MANAGEMENT CONSULTATION Name: KAYLIE GUPTA Room: [facility] MCasandraR.#: [id number] Admission: 09/25/18 Attend Phys: Chris Ritter MD Discharge: Date of : 47 Report #: [id number] needed. We would like to thank you for letting us participate in his care. We hope he continues to improve. By: [id number]. Adam Ritter MD /nt
== END | disposition home or self-care (01) ==
LOC: M.PC 05:13
DX: M77.02 Medial epicondylitis, left elbow (principal); G89.29 Other chronic pain; M54.16 Radiculopathy, lumbar region; Z86.73 Personal history of transient ischemic attack (TIA), and cerebral infarction without residual deficits; Z87.19 Personal history of other diseases of the digestive system; Z86.59 Personal history of other mental and behavioral disorders; Z98.890 Other specified postprocedural states; Z79.899 Other long term (current) drug therapy; Z79.891 Long term (current) use of opiate analgesic

== ENCOUNTER → 2018-09-27 | Outpatient (CLI) | payer OTHER | LOC: M.CT 08:32 | DX: K57.32 Diverticulitis of large intestine without perforation or abscess without bleeding (principal); K42.9 Umbilical hernia without obstruction or gangrene; N28.1 Cyst of kidney, acquired ==

== ENCOUNTER → 2018-11-15 | Outpatient (CLI) | payer OTHER ==
--- NOTE | ~2018-11-15 | PAINCON ---
[address] [address] PAIN MANAGEMENT CONSULTATION Name: ALONSOLOTTDIANA HENAO Room: [facility] Rosalba#: [id number] Admission: 11/15/18 Attend Phys: Chris Ritter MD Discharge: Date of : 47 Report #: [id number] THIS REPORT FOR: //name// CC: Chris Mast DATE OF SERVICE: 11/15/2018 CHIEF COMPLAINT: Lumbar pain. HISTORY: The patient is a 73-year-old gentleman who has been followed in the Pain Clinic. He has a history of pain and discomfort in the low back area. He has undergone epidural steroid injections. He has had some problem with his elbow on the left side. He underwent an injection in the past and gleaned benefits from that. He returns today after vacation in [place]. States that he had a really good time. He would like to continue with his medications. He has had no complications from their use. Does have some recurrence of the pain in the left elbow and low back area. He rates his pain as a 1/10 at this juncture. Continues to take his medications of Celebrex and Cymbalta as well as gabapentin and hydrocodone. ALLERGIES: No known drug allergies. CURRENT MEDICATIONS: Tramadol 50 mg q. 4 hours, Celebrex 200 mg, ____ Cymbalta 60 mg, gabapentin 300 mg 1-2 tablets at bedtime, [place] 10/325 one p.o. t.i.d. PAIN CLINIC ASSESSMENT/PQRS: 1. The patient is not being treated for rheumatoid arthritis. He does have some arthritic changes in his left hip as well as his low back. He has some discomfort in his elbow. The patient has a history of polymyositis. Height 5 feet 8 inches, weight 181 pounds, BMI is 27.6. 2. Vital Signs: Blood pressure 101/67, heart rate 71, respiratory rate 16, room air saturation is 100%, temperature 97.8. 3. Pain intensity is 1. 4. Fall history: The patient has not fallen in the last 3 months. 5. Blood thinner. The patient is not on a blood thinning medication. 6. Hypertension. The patient is not being treated for hypertension. 7. Opioids greater than 6 weeks. The patient receives medication from one source the Pain Clinic. 8. Risk assessment tool, low for opioid use. 9. Functional assessment tool. 10. Recreational drug use. The patient denies use of recreational drugs. 11. Tobacco: The patient denies use of tobacco. PHYSICAL EXAMINATION: GENERAL: The patient is a well-developed, well-[place] [address] PAIN MANAGEMENT CONSULTATION Name: KAYLIE GUPTA Room: [facility]#: [id number] Admission: 11/15/18 Attend Phys: Chris Ritter MD Discharge: Date of : 47 Report #: [id number] his stated age. He is alert and oriented x 3. His affect is appropriate. Speech is fluent. HEENT: Normocephalic, atraumatic. Extraocular eye muscles intact. Sclerae nonicteric. Mucous membranes are moist. NECK: Without adenopathy or JVD. LUNGS: Clear to auscultation without rhonchi or rales. MUSCULOSKELETAL: The patient has some pain in the right lower back approximately T10/T11. MUSCULOSKELETAL: The patient is without significant scoliosis, kyphosis or lordosis. Upper extremity muscle strength is judged to be 5/5 for the major muscle groups in the upper extremity. The patient has pain and discomfort in the low back area. Has had some discomfort in the left elbow (golf elbow). IMPRESSION: 1. History of medial epicondylitis (golf elbow). 2. History of lumbar radiculopathy. 3. Thyroid disease in the past. 4. History of stroke. 5. History of ulcers. 6. Emotional problems. 7. Pain and discomfort in the intercostal areas T10/T11 in the past. RECOMMENDATIONS: We discussed treatment options with the patient. At this point, he feels things are going reasonably well. We will continue with his medications. Risks and benefits of opioid medication have been discussed. The patient is aware that opioid medications and some teeth pulled can cause addiction. 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 He feels his medications are working reasonably well. He would like to continue with the hydrocodone 10 mg 1 p.o. t.i.d. Also has used Celebrex 200 mg. He does not have any problems with his GI tract. The patient will also continue with the Voltaren gel to the upper extremity. We will take his Cymbalta to help with pain control as well as his mood stabilization. The patient will continue with Neurontin 300 mg 2 tablets daily. The patient will continue with tramadol 50 mg one p.o. q. 4 hours p.r.n. and the patient will call us if he has any concerns. We would like to thank you for letting us participate in his care. We hope he continues to improve. The patient enjoy his vacation trip to [place]. By: [id number]. MD antonia Combs
== END ==
LOC: M.PC 05:21
DX: M54.16 Radiculopathy, lumbar region (principal); E07.9 Disorder of thyroid, unspecified; M77.00 Medial epicondylitis, unspecified elbow; Z86.73 Personal history of transient ischemic attack (TIA), and cerebral infarction without residual deficits; Z79.899 Other long term (current) drug therapy

== ENCOUNTER → 2019-02-07 | Outpatient (CLI) | payer OTHER ==
--- NOTE | 2019-02-19 09:09 | PAINCON ---
[address] [address] PAIN MANAGEMENT CONSULTATION Name: ALONSOKAYLIE HENAO Room: [facility].Karla.#: [id number] Admission: 02/07/19 Attend Phys: Chris Ritter MD Discharge: Date of : 47 Report #: [id number] THIS REPORT FOR: //name// CC: Chris Mast DATE OF SERVICE: 02/18/2019 PRIMARY CARE PHYSICIAN: Herber Mast DO CHIEF COMPLAINT: Lumbar radicular pain and here for medication evaluation. HISTORY OF PRESENT ILLNESS: The patient is a 73-year-old gentleman, who has been followed in the pain clinic because of lumbar radiculopathy. He is having pain in his left elbow as well as in the low back area. He has been using Cymbalta. He has not taken it for the last 2 weeks. He has noticed an increase in pain and discomfort. Rates his pain as a 5/10. Continues with his Celebrex and tramadol medications. He also feels that the hydrocodone is beneficial. He would like to have his medications renewed. Overall, things are going reasonably well. ALLERGIES: No known drug allergies. CURRENT MEDICATIONS: Tramadol 50 mg q. 4 hours, Celebrex 200 mg, Cymbalta 60 mg, gabapentin 300 mg 1-2 tablets at bedtime, [place] 10/325 one p.o. t.i.d. PAIN CLINIC ASSESSMENT AND PQRS: 1. The patient is not being treated for rheumatoid arthritis. Has some changes in his left hip and low back. Height 5 feet 8 inches, weight 186 pounds, BMI is 27.5. 2. Vital signs: Blood pressure 126/72, heart rate 65, respiratory rate 18, room air saturation 96%, temperature 98.1. 3. Pain intensity, 5/10. 4. Fall history: The patient has not fallen in the last 3 months. 5. Blood thinner. The patient is not on a blood thinning medication. 6. Hypertension. The patient is not being treated for hypertension. 7. Opioids greater than 6 weeks. The patient received medication from [facility]. 8. Risk assessment tool: Low for opioid use. 9. Functional assessment tool: Has been reviewed. 10. Recreational drug use: The patient denies. 11. Tobacco: The patient denies. PHYSICAL EXAMINATION: GENERAL: The patient is a well-developed, well-nourished white male. Appears his stated age. He is alert and oriented x 3. His [place] [address] PAIN MANAGEMENT CONSULTATION Name: KAYLIE GUPTA Room: [facility]#: [id number] Admission: 02/07/19 Attend Phys: Chris Ritter MD Discharge: Date of : 47 Report #: [id number] Speech is fluent. HEENT: Normocephalic, atraumatic. Extraocular eye muscles intact. Sclerae nonicteric. Mucous membranes are moist. NECK: Without adenopathy or JVD. LUNGS: Generally clear to auscultation. EXTREMITIES: Upper extremity muscle strength judged to be 5/5 for the major muscle groups in the upper extremities. The patient has some pain and discomfort in his left elbow. He has some pain in the lower portion of his back. Lower extremity muscle strength judged to be 5/5 for the major muscle groups in the lower extremity. IMPRESSION: 1. History of epicondylitis/golf elbow. 2. History of lumbar radiculopathy. 3. Thyroid disease in the past. 4. History of stroke. 5. History of ulcers. 6. Emotional problems. 7. Pain and discomfort in the intercostal areas T10/T11 in the past. RECOMMENDATIONS: We discussed treatment options with the patient. At this juncture, things are going reasonably well. He has noted some pain and discomfort in the left elbow area. He has undergone injections for this in the past. If his pain continues to be problematic, we will consider another injection. We will continue with his medications. He is aware that opioid medications can become less effective over time. One can develop tolerance as a result of this. The patient is also aware that some patients become addicted to opioid medications. He is not showing any signs of addiction. He feels the medications are helpful. They enabled him to engage in activities of daily living. They have a lot more trouble engaging in without their use. He feels that the Cymbalta medication was helpful. He did run out of the medication. He would like to restart this medication. He did not have any withdrawal reactions from it. A script for his medications has been rewritten. He will continue with Celebrex 200 mg 1 p.o. daily, Voltaren gel 1% to the upper extremity, hydrocodone 10/325 one p.o. t.i.d., tramadol 50 mg one p.o. q. 4-6 hours p.r.n., Cymbalta 60 mg 1 p.o. daily, gabapentin 300 mg 1 p.o. b.i.d. We would like to thank you for letting us participate in his care. We hope he continues to improve. <ELECTRONICALLY SIGNED> By: Chris Ritter MD 02/19/19 [id number]. Adam Ritter MD /nt
== END ==
LOC: M.PC 05:04
DX: M54.16 Radiculopathy, lumbar region (principal); M77.12 Lateral epicondylitis, left elbow; E07.89 Other specified disorders of thyroid; Z86.73 Personal history of transient ischemic attack (TIA), and cerebral infarction without residual deficits; Z79.899 Other long term (current) drug therapy; Z79.891 Long term (current) use of opiate analgesic

== ENCOUNTER → 2019-04-25 | Outpatient (CLI) | payer OTHER ==
--- NOTE | 2019-04-30 08:37 | PAINCON ---
[address] [address] PAIN MANAGEMENT CONSULTATION Name: KAYLIE GUPTA Room: [facility] M.Karla.#: [id number] Admission: 04/25/19 Attend Phys: Chris Ritter MD Discharge: Date of : 49 Report #: [id number] THIS REPORT FOR: //name// cc: Herber Mast Steve T. DO ~ THIS REPORT FOR: //name// CC: Chris Mast DATE OF SERVICE: 04/25/2019 CHIEF COMPLAINT: Pain in the left forearm area (tennis elbow). HISTORY: The patient is a 74-year-old gentleman who has been followed in the pain clinic because of chronic pain. He has noticed over the last few weeks an increase in pain involving his left elbow. He underwent an injection in the left elbow area in the past. It is similar to his tennis elbow he had been experiencing in the past. He would like to proceed with another injection to the left elbow. He and his are contemplating going on vacation. They are going to take a cruise. She recently got out of the hospital after suffering from another bout of pneumonia, and she has had pneumonia on numerous occasions over the years. He finds that the Celebrex and Voltaren gel continues to be helpful. He rates his pain as about 70% improved with his current medical regimen. ALLERGIES: No known drug allergies. CURRENT MEDICATIONS: Tramadol 50 mg q. 4 hours, Celebrex 200 mg, Cymbalta 60 mg, gabapentin 300 mg 1-2 tablets at bedtime, Perry 10/325 one p.o. t.i.d. PAIN CLINIC ASSESSMENT AND PQRS: 1. The patient is not being treated for rheumatoid arthritis. He has had some changes in his left hip and low back. 2. Height 5 feet 9 inches, weight 179 pounds, BMI is 26.5. 3. Vital signs: Blood pressure 112/69, heart rate 69, respiratory rate 16, room air saturation is 94%, temperature 98. 4. Pain intensity 8/10. 5. Fall history: The patient has not fallen in the last 3 months. 6. Blood thinner. The patient is not on a blood thinning medication. 7. Hypertension. The patient is not being treated for hypertension. 8. Opioids greater than 6 weeks. The patient received medication from one source, the pain clinic. 9. Risk assessment tool, low for opioid use. 10. Functional assessment tool has been reviewed. 11. Recreational drug use: [place] [address] PAIN MANAGEMENT CONSULTATION Name: KAYLIE GUPTA Room: [facility]#: [id number] Admission: 04/25/19 Attend Phys: Chris Ritter MD Discharge: Date of : 47 Report #: [id number] 12. Tobacco: The patient denies. 13. Alcohol: The patient rarely drinks alcoholic beverages. PHYSICAL EXAMINATION: GENERAL: The patient is a well-developed, well-nourished white male. He appears his stated age. He is alert and oriented x 3. He is accompanied by his . He is wearing dark sunglasses. NECK: Without adenopathy or JVD. LUNGS: Generally clear to auscultation. MUSCULOSKELETAL: Upper extremity muscle strength judged to be 5/5 for the major muscle groups in the upper extremity. The patient has some pain and discomfort in the left arm. At his forearm, he notes some increased pain and discomfort. In the past, he had pain and discomfort in the mid portion of his elbow near the flexor carpi radialis consistent with Golfer's elbow. He now is having pain and discomfort on the external side of his elbow in the area of the extensor carpi radialis longus consistent with tennis elbow. Lungs: Generally clear to auscultation. HEART: Regular rate. EXTREMITIES: Upper extremity muscle strength judged to be 5/5 for the major muscle groups in the upper extremity. The patient has some pain and discomfort in the lower extremity and muscle strength judged to be 5/5 for the major muscle groups in the lower extremity. IMPRESSION: 1. History of epicondylitis/Golfer's elbow. 2. History of condylitis/tennis elbow. 2. History of lumbar radicular pain. 3. Thyroid disease in the past. 4. History of stroke. 5. History of ulcers. 6. Emotional problems. 7. Pain and discomfort in the intercostal areas T10/T11 in the past. RECOMMENDATIONS: We discussed treatment options with the patient. At this juncture, we will proceed with an injection to the left condyle area near the extensor carpi radialis longus. Palpation in this area near the epicondyle does cause a reproduction of the patient's pain and discomfort. We will also continue with his current medications of Celebrex 200 mg daily. He also will use Voltaren gel to the affected area p.r.n. The patient finds that Perry 3 times daily is helpful. He will also continue with Cymbalta 60 mg. He feels overall that his medications are about 70% effective in controlling his pain. He would like to consider an injection in the area of the left condylar area for tennis elbow. PROCEDURE NOTE: We discussed treatment options with the patient. Risks and benefits of an injection with local anesthetic [place] [address] PAIN MANAGEMENT CONSULTATION Name: KAYLIE GUPTA Room: [facility]#: [id number] Admission: 04/25/19 Attend Phys: Chris Ritter MD Discharge: Date of : 47 Report #: [id number] Possible complications of the procedure, which could include infection, worsening of pain, no improvement in pain, nerve damage were discussed and the patient elects to proceed. The patient was assisted in getting on the examination table. He was placed in the supine position. His left arm was extended to his side. Palpation in the area of the left epicondylar area near the extensor carpi radialis longus and brachioradialis were palpated. The patient states this did reproduce pain and discomfort. A 25-gauge needle was then advanced into the area of the discomfort. The patient states this did reproduce his discomfort. Aspiration was negative. A total of 40 mg triamcinolone and 5 mL of 0.5% bupivacaine was injected into this area. The patient tolerated the procedure well. There were no complications. He remained in the pain clinic for an appropriate amount of time. He will follow up in the future as needed. A script for tramadol 50 mg one p.o. q. 4 - 6 hours 120 have been written. The patient will also continue with Perry 10 mg 1 p.o. t.i.d., total of 90, Cymbalta 60 mg 1 p.o. daily, and gabapentin 300 mg 1 p.o. or 2 tablets at bedtime. His left arm had been sterilely prepped, a chlorhexidine solution was allowed to dry. A 25-gauge needle was then advanced into the area. The patient again describes this as the area of discomfort. The 5 mL of 0.25% bupivacaine with 40 mg was injected. He remained in the pain clinic for an appropriate amount of time. We would like to thank you for letting us participate in his care. We hope he continues to improve. <ELECTRONICALLY SIGNED> By: Chris Ritter MD 04/30/19 0837 [id number]. Adam Ritter MD /nt
== END | disposition home or self-care (01) ==
LOC: M.PC 04:29
DX: M25.522 Pain in left elbow (principal); G89.29 Other chronic pain; Z98.890 Other specified postprocedural states; Z87.39 Personal history of other diseases of the musculoskeletal system and connective tissue; Z79.899 Other long term (current) drug therapy

== ENCOUNTER → 2019-07-18 | Outpatient (CLI) | payer OTHER ==
[~2019-07-18] MED LIST changes: +TRAMADOL 50 MG50 MG PO
--- NOTE | ~2019-07-18 | PAINCON ---
[address] [address] PAIN MANAGEMENT CONSULTATION Name: KAYLIE GUPTA Room: [facility].#: [id number] Admission: 07/18/19 Attend Phys: Chris Ritter MD Discharge: Date of : 49 Report #: [id number] THIS REPORT FOR: //name// cc: Herber Mast Steve T. DO ~ THIS REPORT FOR: //name// CC: Chris Mast DO DATE OF SERVICE: 07/18/2019 CHIEF COMPLAINT: Continued low back pain. Some left elbow pain. HISTORY: The patient is a 74-year-old gentleman who has been followed in the Pain Clinic. He suffers from chronic pain involving his low back. Also, has had some pain and discomfort in the elbow. He has undergone injections in the left elbow. These have been beneficial. At this point, he rates his pain as a 2/10. He would like to continue with his medications. Notes some increased discomfort with sitting, standing and other activities. Overall, medications and rest are beneficial. He is being mindful of the stay at home request. The COVID-19 virus pandemic is still problematic. He would like to continue with his medications. Overall, he is doing about as well as he could expect. ALLERGIES: No known drug allergies. CURRENT MEDICATIONS: Tramadol 50 mg q. 4 hours, Celebrex 200 mg, Cymbalta 60 mg, gabapentin 300 mg 1-2 tablets at bedtime, and [place] 10 mg 1 p.o. t.i.d. PAIN CLINIC ASSESSMENT/PQRS: 1. The patient is not being treated for rheumatoid arthritis. He does have some changes in his hip and low back. His height is 5 feet 8 inches, weight 180 pounds, BMI is 27.4. 2. Vital Signs: Blood pressure 127/79, heart rate 64, respiratory rate 16, room air saturation 98%, and temperature 97.1. 3. Pain intensity is 2/10. 4. Fall history: The patient has not fallen in the last 3 months. 5. Blood thinner. The patient is not on a blood thinning medication. 6. Hypertension. The patient is not being treated for hypertension. 7. Opioids greater than 6 weeks. The patient receives medication from the Pain Clinic. 8. Risk assessment tool, low for opioid use. 9. Functional assessment tool. The patient has been reviewed. 10. Recreational drug use. The patient denies. 11. Tobacco: [place] [address] PAIN MANAGEMENT CONSULTATION Name: KAYLIE GUPTA Javi Room: [facility]#: [id number] Admission: 07/18/19 Attend Phys: Chris Ritter MD Discharge: Date of : 47 Report #: [id number] 12. Alcohol: The patient rarely drinks alcoholic beverages. PHYSICAL EXAMINATION: GENERAL: The patient is a well-developed, well-nourished white male. Appears his stated age. He is alert and oriented x 3. His affect is appropriate. Speech is fluent. He is accompanied by his . He is wearing a mask. NECK: Without adenopathy or JVD. LUNGS: Generally clear. MUSCULOSKELETAL: Upper extremity muscle strength judged to be 5/5 for the major muscle groups in the upper extremity. The patient does have some pain and discomfort in the left arm. Has some discomfort in the forearm. This in the area of his elbow. LUNGS: Generally clear. HEART: Regular rate. EXTREMITIES: Upper extremity muscle strength judged to be 5/5 for the major muscle groups in the upper extremity. The patient is muscle strength judged to be 5/5 for the major muscle groups in the lower extremity. IMPRESSION: 1. 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 2. History of tennis elbow. 3. History of lumbar radicular pain. 4. Thyroid disease in the past. 5. History of stroke. 6. History of ulcers. 7. Emotional problems. 8. Pain and discomfort ____ in the intercostal areas at T10-T11 in the past. RECOMMENDATIONS: We discussed treatment options with the patient. At this juncture, he feels his medications are working reasonably well. He would like to continue their use. He rates his pain as a 2/10. He has noted some more pain and discomfort in the left elbow. Possibility of an injection in the future is an option. At this point, we will continue with his medications. A script for Cymbalta 60 mg daily has been provided. He will also continue with gabapentin 300 mg at bedtime. We will continue with hydrocodone 10/325 one p.o. t.i.d. He will also continue with Celebrex 200 mg as nonsteroidal anti-inflammatory medications. If he notes that he is having pain or discomfort in his stomach, he will stop taking the medication. He does have a distant history of ulcers. We would like to thank you for letting us participate in his care. We hope he continues to improve. By: [id number]. Adam Ritter MD /nt
== END ==
LOC: M.PC 04:07
DX: M54.5 Low back pain (principal); M25.522 Pain in left elbow; F98.9 Unspecified behavioral and emotional disorders with onset usually occurring in childhood and adolescence; Z87.39 Personal history of other diseases of the musculoskeletal system and connective tissue; Z87.11 Personal history of peptic ulcer disease; Z79.899 Other long term (current) drug therapy

== ENCOUNTER → 2019-10-10 | Outpatient (CLI) | payer OTHER ==
[~2019-10-10] MED LIST changes: +MAGNESIUM250 M1 PO; +NEURONTIN300 MG PO; +PHENERGAN 25 MG25 M1 PO
--- NOTE | 2019-10-22 19:18 | PAINCON ---
[address] [address] PAIN MANAGEMENT CONSULTATION Name: KAYLIE GUPTA Room: [facility].#: [id number] Admission: 10/10/19 Attend Phys: Chris Ritter MD Discharge: Date of : 47 Report #: [id number] THIS REPORT FOR: //name// cc: Herber Mast Steve T. DO ~ THIS REPORT FOR: //name// CC: Chris Mast DATE OF SERVICE: 10/10/2019 CHIEF COMPLAINT: Here for medication renewal, still having some back pain. HISTORY: The patient is a 74-year-old gentleman who has been followed in the pain clinic because of chronic pain involving his low back. He also has left elbow pain. He has undergone injection in the left elbow area. These have been helpful. He returns today indicating that he would like his medications renewed. He rates his pain as a 3/10. He has not had no significant changes since his last visit. He is trying to stay busy with activities. These can increase his discomfort. Sitting can be problematic. Feels his medications are helpful. He and his have been sheltering in place because of the COVID-19 pandemic. He states that he tripped and fell and hit his head on a basket boat. He has had a headache for a couple of days. He has not noticed any increased sleepiness. He is not on a blood thinning medication. ALLERGIES: No known drug allergies. CURRENT MEDICATIONS: Tramadol 50 mg q.4 hours, Celebrex 200 mg, Cymbalta 60 mg, gabapentin 300 mg 1-2 tablets at bedtime, [place] 10 mg 1 p.o. t.i.d. PAIN CLINIC ASSESSMENT AND PQRS: 1. The patient is not being treated for rheumatoid arthritis. He does have some changes in his hip and low back. Height 5 feet 9 inches, weight 180 pounds, BMI is 26.6. 2. Vital Signs: Blood pressure 117/70, heart rate 63, respiratory rate 16, room air saturation is 98%, temperature 97.3. 3. Pain intensity 05/27. 4. Fall history: The patient fell and tripped on a boat. He hit his head in the occipital area. He has had an increase in headache for about 2 days. Overall, things are going reasonably well. He did not lose consciousness after a fall. 5. Blood thinner. The patient is not on a blood thinning medication. 6. Hypertension. The patient is not being treated for hypertension. 7. Opioids greater than 6 weeks. The patient receives [place] [address] PAIN MANAGEMENT CONSULTATION Name: KAYLIE GUPTA Room: [facility]#: [id number] Admission: 10/10/19 Attend Phys: Chris Ritter MD Discharge: Date of : 49 Report #: [id number] 8. Risk assessment tool, low for opioid use. 9. Functional assessment tool. The patient information has been reviewed. 10. Recreational drug use. The patient denies. 11. Tobacco: The patient denies. 12. Alcohol. The patient rarely drinks alcoholic beverages. PHYSICAL EXAMINATION: GENERAL: The patient is a well-developed, well-nourished white male. Appears his stated age. He is alert and oriented x 3. His affect is appropriate. Speech is fluent. HEENT: Normocephalic, atraumatic. Extraocular eye muscles intact. Sclerae nonicteric. Mucous membranes are moist. The patient is wearing a mask. Complains of some pain in the occipital area. Reasonably good range of motion in his neck. HEART: Regular. LUNGS: clear. ABDOMEN: Nontender. EXTREMITIES: Upper extremity muscle strength judged to be 5/5 for the major muscle groups in the upper extremity. The patient has some pain in the lower extremity. Muscle strength in the lower extremities judged to be 5/5. IMPRESSION: 1. History of fall in a boat with a headache, stable at this juncture. 2. History of epicondylitis/golfer's elbow. 3. History of tennis elbow. 4. History of lumbar radicular pain. 5. Thyroid disease in the past. 6. History of stroke. 7. History of ulcers. 8. Emotional problems. 9. Pain and discomfort in the past at T10/T11. RECOMMENDATIONS: We discussed treatment options with the patient. At this juncture, he feels his medications are helpful. He would like to have them renewed. He does not have any problems with the medications. He is able to perform activities of daily living without problems with his sensorium. A script for his medications has been rewritten. He will continue with Celebrex 200 mg. He will continue to monitor his GI tract. Should he note some GI discomfort, he will stop taking the Celebrex. Diclofenac gel 1% to the affected area 4 times daily, Cymbalta 60 mg daily, hydrocodone 10/325 one p.o. t.i.d., 4-week and 8-week scripts have been written. The patient will also continue with tramadol 50 mg q.4 hours p.r.n. He will also continue with gabapentin 300 mg b.i.d. [address] [address] PAIN MANAGEMENT CONSULTATION Name: KAYLIE GUPTA Room: [facility] ASHLYN Rosalba#: [id number] Admission: 10/10/19 Attend Phys: Chris Ritter MD Discharge: Date of : 49 Report #: [id number] We would like to thank you for letting us participate in his care. We hope he continues to improve. A script was sent to his pharmacy. <ELECTRONICALLY SIGNED> By: Chris Ritter MD 10/22/19 [id number]. Adam Ritter MD /PMT
== END ==
LOC: M.PC 04:23
PROVIDERS: ATTEND Anesthesiology Pain Medicine
DX: G89.29 Other chronic pain (principal); M54.5 Low back pain; Z68.26 Body mass index [BMI] 26.0-26.9, adult; Z79.899 Other long term (current) drug therapy; Z86.73 Personal history of transient ischemic attack (TIA), and cerebral infarction without residual deficits

== ENCOUNTER 2019-10-14 11:20 | Emergency (ER) | payer OTHER ==
[~2019-10-14] VITALS: Ht 175.3 cm; Wt 76.7 kg
[~2019-10-14 11:20] MED LIST changes: -MAGNESIUM250 M1 PO; -PHENERGAN 25 MG25 M1 PO
[2019-10-14] MEDS ORDERED: MAGNESIUM250 M1 PO (11:33)
[2019-10-14] MEDS ORDERED: PHENERGAN 25 MG25 M1 PO (12:16)
[2019-10-14 13:15] VITALS: BP 110/69
== END 2019-10-14 13:15 | disposition home or self-care (01) ==
LOC: M.ERS 11:20
DX: S06.0X0A Concussion without loss of consciousness, initial encounter (principal); E78.00 Pure hypercholesterolemia, unspecified; E03.9 Hypothyroidism, unspecified; W22.8XXA Striking against or struck by other objects, initial encounter; Y93.89 Activity, other specified; Y92.89 Other specified places as the place of occurrence of the external cause; Y99.8 Other external cause status

== ENCOUNTER → 2019-10-31 | Outpatient (CLI) | payer OTHER ==
[~2019-10-31] MED LIST changes: +MAGNESIUM250 M1 PO; +PHENERGAN 25 MG25 M1 PO
--- NOTE | 2019-11-10 20:22 | PF ---
[address] [address] PULMONARY FUNCTION REPORT Name: KAYLIE GUPTA Room: [facility]#: [id number] Admission: 10/31/19 Attend Phys: Herber Mast DO Discharge: Date of : 47 Report #: [id number] THIS REPORT FOR: //name// CC: Herber Mast DATE OF SERVICE: 10/31/2019 INTERPRETATION: The FEV1/FVC ratio is normal at 74% with an FVC normal at 108% and FEV1 normal at 110%, FEF 25-75 is also normal at 111%. After the administration of a bronchodilator, there is no significant increase in any of these values. The patient's FEV1 is noted to be 3.34 liters. The total lung capacity is normal at 95%. The residual volume is minimally decreased at 78%. The DLCO as adjusted, hemoglobin is mildly decreased to 77%. IMPRESSION: These are essentially unremarkable/normal pulmonary function tests with the exception that minor abnormalities noted are concave upwards flow volume loop and minor reduction in DLCO. These could be normal variants or could indicate minimal obstruction. Clinical correlation is advised. <ELECTRONICALLY SIGNED> By: Caio Noel MD 11/10/192021 1700 [id number] Noel MD /nt
== END ==
LOC: M.PUL 08:54
DX: R06.02 Shortness of breath (principal)

== ENCOUNTER → 2020-01-02 | Outpatient (CLI) | payer OTHER ==
--- NOTE | 2020-01-21 14:36 | PAINCON ---
[address] [address] PAIN MANAGEMENT CONSULTATION Name: KAYLIE GUPTA Room: [facility].#: [id number] Admission: 01/02/20 Attend Phys: Chris Ritter MD Discharge: Date of : 49 Report #: [id number] THIS REPORT FOR: //name// cc: Herber Mast Steve T. DO ~ CC: Chris Mast DATE OF SERVICE: 01/02/2020 CHIEF COMPLAINT: Low back and left elbow pain. HISTORY: The patient is a 74-year-old gentleman who has been followed in the pain clinic. He is doing reasonably well with his medications. Does still have some chronic pain involving his back. His left elbow was not very problematic today. He rates his pain today as a 4/10. He has had no significant changes since we saw him last. He would like to continue with his medications. He does try to stay busy with activities. He notes that most of his pain is associated with activities of daily living. ALLERGIES: No known drug allergies. CURRENT MEDICATIONS: Tramadol 50 mg q.4 hours, Celebrex 200 mg, Cymbalta 60 mg, gabapentin 300 mg 1-2 tablets at bedtime, [place] 10 mg 1 p.o. t.i.d. PAIN CLINIC ASSESSMENT AND PQRS: 1. The patient is not being treated for rheumatoid arthritis. He does have some changes in his hip and low back area. 2. Height 5 feet 9 inches, weight 180 pounds, BMI is 26.6. 3. Vital Signs: Blood pressure is 135/70, heart rate 61, respiratory rate 16, room air saturation is 97%, temperature 97.0. 4. Pain intensity 06/27. 5. Fall history: The patient has not fallen since we saw him last. 6. Blood thinner. The patient is not on a blood thinning medication. 7. Hypertension. The patient is not being treated for hypertension. 8. Opioids greater than 6 weeks. The patient receives medication from one source the pain clinic. 9. Risk assessment tool, low for opioid use. 10. Functional assessment tool. The patient denies use of blood thinning medication. 11. Opioids. The patient received medication from the pain clinic. 12. Functional assessment tool has been reviewed. 13. Recreational drug use: The patient denies. 14. Tobacco: The patient denies. 15. Alcohol: The [place] [address] PAIN MANAGEMENT CONSULTATION Name: KAYLIE GUPTA Room: [facility]#: [id number] Admission: 01/02/20 Attend Phys: Chris Ritter MD Discharge: Date of : 49 Report #: [id number] PHYSICAL EXAMINATION: GENERAL: The patient is a well-developed, well-nourished white male. Appears his stated age. He is alert and oriented x 3. His affect is appropriate. Speech is fluent. HEENT: Normocephalic, atraumatic. Extraocular eye muscles intact. The patient is wearing a facial covering. Has had some pain in the occipital areas. Good range of motion. HEART: Regular rate. LUNGS: Clear. ABDOMEN: Nontender. MUSCULOSKELETAL: Upper extremity muscle strength judged to be 5/5 for the major muscle groups in the upper extremity. The patient has some pain in the lower extremities. Rates his pain as 5/10. Muscle strength rates the strength as 5/5. IMPRESSION: 1. History of fall in a boat with headache, stable. 2. History of epicondylitis/Golfer's elbow. 3. History of tennis elbow. 4. History of lumbar radicular pain. 5. Thyroid disease in the past. 6. History of stroke. 7. History of ulcers. 8. Emotional problems. 9. Pain and discomfort in the past in the T10-T11 area. RECOMMENDATIONS: The patient feels that things are going reasonably well. We will continue with his medications. A script for these medications have been renewed. The patient will call us if he has any concerns. The script for hydrocodone 10/325 one p.o. t.i.d. has been rewritten for the next 3 months. The patient will also continue with tramadol 50 mg one p.o. q.4 hours to 6 hours 4 times daily as needed. He will also continue with Celebrex. He will note the effects of this on his GI tract. Should he note some GI discomfort or bleeding, he will stop taking these medications. We would like to thank you for letting us participate in his care. We hope he continues to improve. <ELECTRONICALLY SIGNED> By: Chris Ritter MD 01/21/20 1436 [id number]. Adam Ritter MD /merlin
== END ==
LOC: M.PC 10:29
PROVIDERS: ATTEND Anesthesiology Pain Medicine
DX: G89.29 Other chronic pain (principal); M54.6 Pain in thoracic spine; Z88.8 Allergy status to other drugs, medicaments and biological substances; Z68.26 Body mass index [BMI] 26.0-26.9, adult; Z79.891 Long term (current) use of opiate analgesic; Z79.899 Other long term (current) drug therapy

== ENCOUNTER 2020-01-13 18:19 | Emergency (ER) | payer OTHER ==
[~2020-01-13] VITALS: Ht 175.3 cm; Wt 77.1 kg
[2020-01-13 19:26] LABS: CALCIUM 8.8 mg/dL (8.5-10.1); CREATININE 1.2 mg/dL (0.6-1.3); POTASSIUM 3.9 mmol/L (3.5-5.1)
[2020-01-13 19:30] LABS: ALBUMIN 3.9 g/dL (3.4-5.0); TOTAL BILIRUBIN 0.4 mg/dL (<0.1-1.0); TOTAL PROTEIN 7.5 g/dL (6.4-8.2)
[2020-01-13 19:35] LABS: ABSOLUTE EOSINOPHILS 0.2 thou/uL (0.0-0.7); ABSOLUTE MONOCYTES 0.4 thou/uL (0.0-1.2); MCV 99.7 fL (80.0-100.0); NUCLEATED RBCS 0 /100WBC; WBC 6.4 thou/uL (4.0-11.0)
[2020-01-13 19:39] LABS: ABSOLUTE LYMPHOCYTES 2.2 thou/uL (0.8-5.3); ABSOLUTE NEUTROPHILS 3.6 thou/uL (1.6-8.1); BASOPHILS 0.6 %; EOSINOPHILS 3.4 %; HEMATOCRIT 37.9 % (42.0-52.0); HEMOGLOBIN 13.2 gm/dL (14.0-18.0); LYMPHOCYTES 34.1 %; MCH 34.7 pg (26.0-34.0); MCHC 34.8 g/dL (28.0-37.0); MONOCYTES 6.4 %; MPV 8.9 fl. (7.2-11.1); PLATELET COUNT* 182 thou/uL (150-400); POLYS 55.5 %; RBC 3.81 mil/uL (4.50-6.00); RDW-CV 13.9 % (10.5-14.5)
[2020-01-13 20:30] VITALS: BP 138/76
== END 2020-01-13 20:33 | disposition home or self-care (01) ==
LOC: M.ERS 18:19
PROVIDERS: Family Medicine
DX: R51.9 Headache, unspecified (principal); E11.9 Type 2 diabetes mellitus without complications; E78.00 Pure hypercholesterolemia, unspecified; M19.90 Unspecified osteoarthritis, unspecified site; E03.9 Hypothyroidism, unspecified

== ENCOUNTER → 2020-04-02 | Outpatient (CLI) | payer OTHER | LOC: M.PC 09:55 | PROVIDERS: ATTEND Anesthesiology Pain Medicine | DX: M25.511 Pain in right shoulder (principal); M25.512 Pain in left shoulder; M25.551 Pain in right hip; M25.552 Pain in left hip; F98.9 Unspecified behavioral and emotional disorders with onset usually occurring in childhood and adolescence; Z87.39 Personal history of other diseases of the musculoskeletal system and connective tissue; Z86.73 Personal history of transient ischemic attack (TIA), and cerebral infarction without residual deficits; Z87.11 Personal history of peptic ulcer disease ==

== ENCOUNTER → 2020-06-23 | Outpatient (CLI) | payer OTHER | LOC: M.PC 06-18 10:15 | PROVIDERS: ATTEND Anesthesiology Pain Medicine | DX: M25.511 Pain in right shoulder (principal); M25.512 Pain in left shoulder; M25.551 Pain in right hip; Z87.39 Personal history of other diseases of the musculoskeletal system and connective tissue; Z86.39 Personal history of other endocrine, nutritional and metabolic disease; Z86.73 Personal history of transient ischemic attack (TIA), and cerebral infarction without residual deficits; Z87.11 Personal history of peptic ulcer disease; F98.9 Unspecified behavioral and emotional disorders with onset usually occurring in childhood and adolescence ==

== ENCOUNTER → 2020-09-15 | Outpatient (CLI) | payer OTHER | LOC: M.PC 11:30 | PROVIDERS: ATTEND Anesthesiology Pain Medicine | DX: R51.9 Headache, unspecified (principal); G89.29 Other chronic pain; M77.12 Lateral epicondylitis, left elbow; M54.16 Radiculopathy, lumbar region; E07.89 Other specified disorders of thyroid; Z86.73 Personal history of transient ischemic attack (TIA), and cerebral infarction without residual deficits; Z79.899 Other long term (current) drug therapy; Z79.891 Long term (current) use of opiate analgesic ==

== ENCOUNTER → 2020-10-06 | Outpatient (CLI) | payer OTHER ==
[2020-10-06 14:42] LABS: ABSOLUTE EOSINOPHILS 0.3 thou/uL (0.0-0.7); ABSOLUTE LYMPHOCYTES 2.9 thou/uL (0.8-5.3); ABSOLUTE MONOCYTES 0.4 thou/uL (0.0-1.2); ABSOLUTE NEUTROPHILS 3.5 thou/uL (1.6-8.1); BASOPHILS 0.5 %; EOSINOPHILS 4.2 %; HEMATOCRIT 38.8 % (42.0-52.0); HEMOGLOBIN 13.6 gm/dL (14.0-18.0); LYMPHOCYTES 40.4 %; MCH 34.2 pg (26.0-34.0); MCV 97.5 fL (80.0-100.0); MONOCYTES 5.8 %; MPV 8.7 fl. (7.2-11.1); NUCLEATED RBCS 0 /100WBC; PLATELET COUNT* 199 thou/uL (150-400); POLYS 49.1 %; RBC 3.98 mil/uL (4.50-6.00); RDW-CV 12.9 % (10.5-14.5); WBC 7.1 thou/uL (4.0-11.0)
== END ==
LOC: M.RAD 13:45
PROVIDERS: ATTEND Nurse Practitioner Family
DX: M19.012 Primary osteoarthritis, left shoulder (principal); M19.011 Primary osteoarthritis, right shoulder; M25.512 Pain in left shoulder; M25.511 Pain in right shoulder

== ENCOUNTER → 2020-11-02 | Outpatient (CLI) | payer OTHER | LOC: M.RAD 11:24 | PROVIDERS: ATTEND Nurse Practitioner Family | DX: M16.0 Bilateral primary osteoarthritis of hip (principal); M25.522 Pain in left elbow; M25.552 Pain in left hip; M25.551 Pain in right hip ==

== ENCOUNTER → 2020-12-15 | Outpatient (CLI) | payer OTHER | LOC: M.PC 12-08 11:50 | PROVIDERS: ATTEND Anesthesiology Pain Medicine | DX: G89.29 Other chronic pain (principal); R51.9 Headache, unspecified; M54.16 Radiculopathy, lumbar region; M54.5 Low back pain; E07.9 Disorder of thyroid, unspecified; M25.511 Pain in right shoulder; M25.512 Pain in left shoulder; M25.551 Pain in right hip; M25.552 Pain in left hip; Z79.899 Other long term (current) drug therapy ==

== ENCOUNTER → 2021-03-09 | Outpatient (CLI) | payer OTHER | LOC: M.PC 11:21 | PROVIDERS: ATTEND Anesthesiology Pain Medicine | DX: R51.9 Headache, unspecified (principal); M77.10 Lateral epicondylitis, unspecified elbow; M54.50 Low back pain, unspecified; E07.9 Disorder of thyroid, unspecified; Z87.11 Personal history of peptic ulcer disease; Z86.73 Personal history of transient ischemic attack (TIA), and cerebral infarction without residual deficits; Z79.899 Other long term (current) drug therapy ==

== ENCOUNTER 2021-03-17 15:43 | Emergency (ER) | payer OTHER ==
[~2021-03-17] VITALS: Ht 175.3 cm; Wt 76.2 kg
[2021-03-17 18:41] VITALS: BP 132/85
[2021-03-18] MEDS ORDERED: TRAMADOL 50 MG50 MG PO (13:46)
== END 2021-03-17 18:41 | disposition home or self-care (01) ==
LOC: M.ERS 15:43
DX: S01.311A Laceration without foreign body of right ear, initial encounter (principal); E03.9 Hypothyroidism, unspecified; E78.00 Pure hypercholesterolemia, unspecified; E11.9 Type 2 diabetes mellitus without complications; M19.90 Unspecified osteoarthritis, unspecified site; Z79.899 Other long term (current) drug therapy; Z90.89 Acquired absence of other organs; W19.XXXA Unspecified fall, initial encounter; Y93.89 Activity, other specified; Y92.89 Other specified places as the place of occurrence of the external cause; Y99.8 Other external cause status